=== PATIENT | female | born 1940 ===

== ENCOUNTER → 2022-02-20 08:20 | Outpatient (BNVA) | payer MEDICARE, OTHER, SELFPAY | PROVIDERS: PCP Internal Medicine; Visit Provider Student in an Organized Health Care Education/Training Program | DX: M35.3 Polymyalgia rheumatica (principal); M12.812 Other specific arthropathies, not elsewhere classified, left shoulder; Z79.52 Long term (current) use of systemic steroids | CPT/HCPCS: 99202 ==

== ENCOUNTER 2023-03-05 14:05 | Outpatient (AMB) | payer MEDICARE, OTHER, SELFPAY ==
--- NOTE | 2023-03-05 14:07 | A.OFFVIS_ITS ---
Intake Vital Signs 03/05/23 14:15 Weight 139 lb 5.314 oz BP 118/66 Blood Pressure Location Rt brachial Position Sitting Pulse 65 Pulse Source Pulse Oximeter Temp 97.1 F Temp Source Skin Pulse Oximetry (%) 94 Intake Visit Reasons: seropositive rheumatoid arthritis Intake Note: Pt seen today for RA follow up. She was last seen on 02/20/22. Clinical Researcher Required: No Accompanied by: Self / Same As Patient Allergies No Known Allergies Allergy (Verified 03/05/23 14:16) HPI HPI Comments History of Present Illness Details 82-year-old female with history of PMR r eturns for follow-up. States that she is doing well overall. She has been off prednisone for a long time. States that she gets intermittent left shoulder pain and stiffness that resolved with Tylenol. Denies any headaches or blurry vision. Initial history: This is an 81-year-old female with past medical history of hypertension, AFib on Eliquis, osteoporosis, dyslipidemia who presents for evaluation of polymyalgia rheumatica. Symptoms started in September of 2021 with bilateral hip pain and stiffness then it spread to involve her shoulders. She had x-rays of her hips and shoulders which were unremarkable. She went for physical therapy which improved the range of motion and pain of her right shoulder and both hips but continued to have significant pain of her left shoulder. She was then started on prednisone starting at with a 15 mg daily eventually tapered down to 2 mg daily which she has been taking for about 1 month and planning to be on 1 mg daily in the beginning of March. The prednisone gave her dramatic relief. This is managed by her PCP. Now her symptoms have almost completely resolved, except for occasional left shoulder twinge . She denies any headaches, blurry vision, fevers, weight loss, scalp pain or jaw pain. She also denied any hand pain swelling or stiffness when she initially had those symptoms. REPLACED BY [facility] Medical History Polymyalgia rheumatica Hypertension Hypothyroidism Screening for osteoporosis Dyslipidemia Surgical History No history of previous surgery Family History Father Coronary artery disease Myocardial infarction, Onset Age: 50 Paternal Grandfather Coronary artery disease Daughter Breast cancer Multiple sclerosis Mother Hypertension Hiatal hernia Other Autoimmune disease Social History Household Members: None Household Members Other:: Apartment in daughter's house Housing: Apartment Alcohol intake: current Alcohol intake frequency: a few times a week Patient Tobacco Use Status: Never used Tobacco Current occupational status: retired 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 Review of Systems Const Denies headache(s) ENT Denies headache(s) Musc Reports arthralgias and Reports stiffness Neuro Denies headache(s) Physical Exam Vital Signs: Last Vital Signs Temp 97.1 F 03/05/23 14:15 Pulse 65 03/05/23 14:15 BP 118/66 03/05/23 14:15 Pulse Ox 94 03/05/23 14:15 Const General: cooperative, healthy appearing, comfortable and no acute distress Nutritional Appearance: overweight Orientation/consciousness: patient oriented x3 Limitations: no limitations HEENT Head: Yes normocephalic Resp Effort & Inspection: normal respiratory effort and able to speak in complete sentences Auscultation: clear to auscultation bilaterally Neuro General: patient oriented x3 Extrem Other: Mild osteoarthritic changes of her hands with few tender Heberden's nodes left hand, with no synovitis, normal range of motion of both shoulders No joint swelling warmth or erythema Positive empty can test left shoulder Assessment & Plan Assessment & Plan (1) Polymyalgia rheumatica: Comment: dx 09/2021 managed by PCP. steroids DC around 05/2022 with no recurrence Code(s): M35.3 - Polymyalgia rheumatica Plan: This is an 82-year-old female with PMR who presents for follow up. She is in remission. She has been off prednisone for at least 10 months now. She was managed by her PCP. Follow-up as needed (2) Rotator cuff arthropathy of left shoulder: Code(s): M12.812 - Other specific arthropathies, not elsewhere classified, left shoulder Plan: Positive empty can test left shoulder, but no limited range of motion. And this is minimally symptomatic for the patient. She can consider doing physical therapy for that left shoulder in the future Plan I spent 15 minutes reviewing patient's chart, evaluating patient, counseling patient and documenting in the chart Coding Level of Care Code Est Pt Level 3 (13020) Diagnoses Polymyalgia rheumatica M35.3 Rotator cuff arthropathy of left shoulder M12.812
[2023-03-05 14:15] VITALS: BP 118/66; PULSE 65; TEMP 36.2; O2SAT 94
== END 2023-03-05 15:08 | disposition home or self-care (01) ==
PROVIDERS: PCP Internal Medicine; Visit Provider Student in an Organized Health Care Education/Training Program
DX: M35.3 Polymyalgia rheumatica (principal); M12.812 Other specific arthropathies, not elsewhere classified, left shoulder
CPT/HCPCS: 99213

== ENCOUNTER → 2023-03-05 14:05 | Outpatient (BNVA) | payer MEDICARE, OTHER, SELFPAY | PROVIDERS: Visit Provider Student in an Organized Health Care Education/Training Program | DX: M35.3 Polymyalgia rheumatica (principal); M12.812 Other specific arthropathies, not elsewhere classified, left shoulder | CPT/HCPCS: 99212 ==